=== PATIENT | female | born 1990 | race Caucasian/White ===

== ENCOUNTER → 2017-01-21 | Outpatient (CLI) | payer BC ==
[~2017-01-21] MED LIST: ALBU18HF2 IH; CATHETER FLUSH 10 ML SYR IV PRN; CETI10CA PO; IOHEXOL 350 MG/ML 100 ML (OMNIPAQUE 350) VIAL IV ONE; MONT10TA21 PO; NS 100 ML (IVPB) BAG IV ONE; RT-ALBUINH IH
--- NOTE | 2017-01-21 12:29 | Diagnostic Imaging Report ---
PROCEDURE: CT abdomen with contrast only. TECHNIQUE: Multiple contiguous axial images were obtained through the abdomen after the administration of intravenous contrast. INDICATION: Left upper quadrant pain. Nausea and fever. 100 mL of Omnipaque 350 is administered intravenously. FINDINGS: There is left lower lobe consolidation with air bronchograms suggestive of pneumonia. There is a small patchy consolidation in the right middle lobe. The liver parenchyma is slightly heterogenous. The spleen, the pancreas, the gallbladder, and adrenals appear unremarkable. The kidneys have symmetric enhancement and contrast excretion. There is no hydronephrosis. The abdominal aorta is normal in caliber. No periaortic significantly enlarged lymph nodes are seen. No fluid collection or free fluid in the abdomen is seen. The osseous structures appear grossly unremarkable. IMPRESSION: 1. Consolidation is seen in the left lower lobe and to a lesser extent in the right middle lobe suggestive of pneumonia. 2. Slight heterogeneity in the liver may relate to nonhomogeneous fat infiltration, or in the appropriate clinical setting, hepatitis could be considered. No discrete mass. The findings were discussed with Radha Cisse, Nurse Practitioner taking care of the patient at time of dictation. Dictated by: Dictated on workstation # [id number]
== END ==
LOC: RAD 09:20
PROVIDERS: ATTEND Nurse Practitioner Family
DX: R10.12 Left upper quadrant pain (principal)
CPT/HCPCS: 74160

== ENCOUNTER → 2017-01-21 | Outpatient (CLI) | payer BC ==
[~2017-01-21] VITALS: Ht 170.2 cm; Wt 73.5 kg
[~2017-01-21] MED LIST changes: +AZITHROMYCIN 500 MG/NS 250 ML IVPB IV ONE; -CATHETER FLUSH 10 ML SYR IV PRN; -IOHEXOL 350 MG/ML 100 ML (OMNIPAQUE 350) VIAL IV ONE; +NS (IVPB) 50 ML ONE; -NS 100 ML (IVPB) BAG IV ONE; +cefTRIAXone 1 GM (ROCEPHIN) VIAL ONE; +cefTRIAXone 1 GM/NS 50 ML IVPB IV ONE; +methylPREDNISolone 125 MG (Solu-MEDROL) VIAL IVP ONE; +methylPREDNISolone 125 MG (Solu-MEDROL) VIAL ONE
[2017-01-21 11:40] VITALS: BP 96/57
--- NOTE | 2017-01-21 11:55 | Diagnostic Imaging Report ---
INDICATION: Left lower lobe pneumonia. PA and lateral chest. FINDINGS: There is an infiltrate present in the posteromedial aspect of the left lower lung consistent with pneumonia. IMPRESSION: Left basilar pneumonia. Dictated by: Dictated on workstation # [id number]
[2017-01-21 13:40] VITALS: BP 96/57
== END ==
LOC: SDC 11:14
PROVIDERS: ATTEND Nurse Practitioner Family
DX: J18.9 Pneumonia, unspecified organism (principal)
CPT/HCPCS: 71020; 87804; 96365; 96367; 96374

== ENCOUNTER → 2017-01-29 | Outpatient (CLI) | payer BC ==
[~2017-01-29] MED LIST changes: -AZITHROMYCIN 500 MG/NS 250 ML IVPB IV ONE; -NS (IVPB) 50 ML ONE; -cefTRIAXone 1 GM (ROCEPHIN) VIAL ONE; -cefTRIAXone 1 GM/NS 50 ML IVPB IV ONE; -methylPREDNISolone 125 MG (Solu-MEDROL) VIAL IVP ONE; -methylPREDNISolone 125 MG (Solu-MEDROL) VIAL ONE
--- NOTE | 2017-01-29 16:49 | Diagnostic Imaging Report ---
Indication: Lower respiratory infection PA and lateral chest Heart size and pulmonary vascular normal. Lungs are clear. There are no effusions or pneumothoraces. Impression: Negative chest Dictated by: Dictated on workstation # [id number]
== END ==
LOC: RAD 16:34
PROVIDERS: ATTEND Nurse Practitioner Family
DX: J18.9 Pneumonia, unspecified organism (principal)
CPT/HCPCS: 71020

== ENCOUNTER → 2017-06-04 | Outpatient (CLI) | payer BC ==
--- NOTE | 2017-06-04 19:06 | Diagnostic Imaging Report ---
INDICATION: Cough, pneumonia. COMPARISON: 01/29/17. EXAMINATION: Frontal and lateral views of the chest were obtained. FINDINGS: Clear lungs, bilaterally. The heart is normal. No pneumothorax. The osseous structures are normal. IMPRESSION: Negative chest. Dictated by: Dictated on workstation # [id number]
[2017-06-04 19:08] LABS: BASOPHILS % (AUTO) 0 % (0-10); EOSINOPHILS # (AUTO) 0.3 10^3/uL (0.0-0.3); EOSINOPHILS % (AUTO) 2 % (0-10); LYMPHOCYTES # (AUTO) 1.1 X 10^3 (1.0-4.0); LYMPHOCYTES % (AUTO) 9 % (12-44); MEAN CORPUSCULAR HEMOGLOBIN 29 PG (25-34); MEAN CORPUSCULAR HGB CONC 34 G/DL (32-36); MEAN CORPUSCULAR VOLUME 85 FL (80-99); MEAN PLATELET VOLUME 9.9 FL (7.4-10.4); MONOCYTES % (AUTO) 8 % (0-12); NEUTROPHILS # (AUTO) 9.5 X 10^3 (1.8-7.8); NEUTROPHILS % (AUTO) 80 % (42-75); PLATELET COUNT 331 10^3/uL (130-400); RED BLOOD COUNT 4.87 10^6/uL (4.35-5.85); RED CELL DISTRIBUTION WIDTH 13.8 % (10.0-14.5); WHITE BLOOD COUNT 11.8 10^3/uL (4.3-11.0)
== END ==
LOC: RAD 18:22
PROVIDERS: ATTEND Family Medicine
DX: J18.9 Pneumonia, unspecified organism (principal)
CPT/HCPCS: 36415; 71020; 85025

== ENCOUNTER → 2019-12-23 | Outpatient (CLI) | payer BC ==
--- NOTE | 2019-12-23 12:42 | Diagnostic Imaging Report ---
INDICATION: patient, survey TECHNIQUE: Multiple real-time grayscale images were obtained over the gravid uterus. COMPARISON: None FINDINGS: A single live intrauterine fetus is seen measuring 20 weeks 3 days by composite dates. The fetus is in breech presentation at this time. Amniotic fluid index is 12.37 cm. Placenta is grade 1 with no evidence of previa. Cervical length is 5.4 cm. survey showed normal-appearing kidneys, bladder, and stomach. Normal intracranial ventricles are seen. Four-chamber heart view appears unremarkable. The spine appears unremarkable. Three-vessel cord and cord insertion appear unremarkable. Maternal adnexa could not be visualized. Biometrical measurements are as follows: Biparietal 4.64 cm, age 20 weeks 1 days. Head circumference 17.93 cm, age 20 weeks 3 days. Abdominal circumference 15.65 cm, age 20 weeks 6 days. Femur length 3.29 cm, age 20 weeks 2 days. Sonographic estimate age: 20 weeks 3 days. Sonographic estimated date of delivery: 05/08/2020. Estimated Weight: 360 gm (+/- 53 gm). LMP percentile: 88%. heart rate: 153 beats per minute. number: 1 of 1. IMPRESSION: Single live intrauterine fetus measuring 20 weeks 3 days in size. There is no detectable abnormality. Dictated by: Dictated on workstation # [id number]
== END ==
LOC: RAD 09:53
PROVIDERS: ATTEND Obstetrics & Gynecology
DX: Z36.9 Encounter for antenatal screening, unspecified (principal); Z3A.20 20 weeks gestation of pregnancy
CPT/HCPCS: 76805

== ENCOUNTER → 2020-04-18 | Outpatient (CLI) | payer BC | LOC: LABNPT 09:33 | PROVIDERS: ATTEND Obstetrics & Gynecology | DX: O13.9 Gestational [pregnancy-induced] hypertension without significant proteinuria, unspecified trimester (principal) | CPT/HCPCS: 82570; 84156 ==